=== PATIENT | female | born 1995 | race Two or more races ===

== ENCOUNTER 2021-10-12 15:40 | Emergency (ER) | payer OTHER ==
[~2021-10-12] VITALS: Ht 170.2 cm; Wt 59.0 kg
[2021-10-12 15:47] VITALS: BP 106/62
--- NOTE | 2021-10-12 16:00 | NUR ---
BIBSELF C/O RIGHT FLANK PAIN SINCE LAST NIGHT. AMBULATORY, PLACED ON BE [id number]
--- NOTE | 2021-10-12 16:05 | NUR ---
SEEN AND EXAMINED BY DR SAMAYOA
--- NOTE | 2021-10-12 16:20 | NUR ---
URINE SPECIMEN COLLECTED AND SENT TO LAB
[2021-10-12] MEDS ORDERED: IBUPROFEN 600 MG TABLET PO ONE (16:30)
[2021-10-12] MEDS ORDERED: IBUPROFEN 600 MG TABLET ONE (17:30)
[2021-10-12 17:38] LABS: BILIRUBIN,URINE NEGATIVE (NEGATIVE); COLOR,URINE YELLOW (YELLOW); LEUKOCYTE ESTERASE ,URINE NEGATIVE (NEGATIVE); NITRITE, URINE NEGATIVE (NEGATIVE); PH,URINE 5.5 (5.0-8.0); PROTEIN,URINE NEGATIVE (NEGATIVE); UGLUCOSE NEGATIVE (NEGATIVE); UROBILINOGEN,URINE 0.2 EU/dL (0.2)
[2021-10-12 17:47] LABS: BACTERIA,URINE RARE /HPF (None Seen); MUCUS,URINE Many /LPF (None Seen); RBC,URINE 0-2 /HPF (0-2); WBC,URINE 0-2 /HPF (0-3)
--- NOTE | 2021-10-12 18:22 | NUR ---
Patient discharged to home in stable condition. Written and verbal after care instructions given. Patient verbalizes understanding of instruction.
== END 2021-10-12 18:20 | disposition home or self-care (01) ==
LOC: ER 15:54
DX: R10.9 Unspecified abdominal pain (principal)
CPT/HCPCS: 76700-TC; 81001; 84703-TC